=== PATIENT | male | born 1990 | race Two or more races ===

== ENCOUNTER 2021-08-22 15:49 | Emergency (ER) | payer SELFPAY ==
[~2021-08-22] VITALS: Ht 185.4 cm; Wt 108.9 kg
[2021-08-22] MEDS ORDERED: MORPHINE SULFATE INJECTION 2 MG/ML SYRG IM ONE (16:15)
[2021-08-22] MEDS ORDERED: ONDANSETRON ODT 4 MG TAB PO ONE (16:15)
[2021-08-22] MEDS ORDERED: IBUP800T27 PO (17:03)
[2021-08-22] MEDS ORDERED: ACE3T PO (17:03)
[2021-08-22 17:39] VITALS: BP 131/74
== END 2021-08-22 17:42 | disposition home or self-care (01) ==
LOC: ER 15:49
DX: S42.292A Other displaced fracture of upper end of left humerus, initial encounter for closed fracture (principal); S39.012A Strain of muscle, fascia and tendon of lower back, initial encounter; S70.02XA Contusion of left hip, initial encounter; S70.212A Abrasion, left hip, initial encounter; F17.210 Nicotine dependence, cigarettes, uncomplicated; F12.10 Cannabis abuse, uncomplicated; V28.4XXA Motorcycle driver injured in noncollision transport accident in traffic accident, initial encounter; Y93.89 Activity, other specified; Y92.89 Other specified places as the place of occurrence of the external cause; Y99.8 Other external cause status
CPT/HCPCS: 72100; 73030; 73502; 96372; 99284; J2270; Q0162

== ENCOUNTER 2021-10-09 12:13 | Emergency (ER) | payer SELFPAY ==
[~2021-10-09] VITALS: Ht 185.4 cm; Wt 104.3 kg
[~2021-10-09 12:13] MED LIST: ACE3T PO; IBUP800T27 PO
[2021-10-09 12:14] VITALS: BP 155/89
== END 2021-10-09 17:12 | disposition left against medical advice (07) ==
LOC: ER 12:13
DX: M79.672 Pain in left foot (principal); Z53.21 Procedure and treatment not carried out due to patient leaving prior to being seen by health care provider
CPT/HCPCS: 73610; 73630